=== PATIENT | male | born 1995 | race Caucasian/White ===

== ENCOUNTER 2017-10-02 12:21 | Emergency (ER) | payer OTHER ==
[~2017-10-02] VITALS: Ht 185.4 cm; Wt 72.6 kg
[2017-10-02 14:33] VITALS: BP 135/86
== END 2017-10-02 14:33 | disposition home or self-care (01) ==
LOC: ED 12:21
DX: R07.89 Other chest pain (principal)
CPT/HCPCS: Q0092